=== PATIENT | male | born 1930 | race Caucasian/White ===

== ENCOUNTER 2019-06-06 15:05 | Inpatient (IN) | payer MEDICARE ==
[2019-06-06] VITALS (15 sets, daily range): BP systolic 130–153; BP diastolic 52–83
[~2019-06-06] VITALS: Ht 160 cm; Wt 80.8 kg
[~2019-06-06 15:05] MED LIST: ASPIRIN ADULT L81 M1 PO; ATACAND 32 MG PO; ATACAND4 MG PO; HYDROCODONE BIT1 T11 PO; PRILOSEC20 M1 PO; TENORMIN25 M1 PO
[2019-06-06 16:15] LABS: HEMATOCRIT 26.7 % (42.0-52.0); MEAN CORPUSCULAR HGB 25.5 pg (27.0-31.0); MEAN PLATELET VOLUME 10.5 fl (9.6-12.3); PLATELET COUNT AUTOMATED 769 10*3/uL (130-400); RED BLOOD COUNT 3.14 10*6/uL (4.50-5.90); RED CELL DISTRI WIDTH 18.6 % (0-14.5); WHITE BLOOD COUNT 10.8 10*3/uL (4.8-10.8)
[2019-06-06 16:28] LABS: ALBUMIN 3.7 gm/dl (3.1-4.5); CREATININE 1.64 mg/dL (0.70-1.30); POTASSIUM 3.7 mmol/L (3.5-5.1); TOTAL PROTEIN 6.8 gm/dL (6.4-8.2)
[2019-06-06 16:41] LABS: BASOPHILS 2 % (0-1); PLATELET SUFFICIENCY HIGH (NORMAL); TOTAL CELLS COUNTED 100 #CELLS
[2019-06-06 16:42] LABS: OVALOCYTES FEW; POLYCHROMASIA SLIGHT; STOMATOCYTE FEW
[2019-06-06] MEDS ORDERED: HYDROCHLOROTHIA25 M1 PO (18:37)
[2019-06-06] MEDS ORDERED: ATACAND4 MG PO (18:38)
[2019-06-06] MEDS ORDERED: SENOKOT8.6 MG PO (18:43)
[2019-06-06] MEDS ORDERED: FEXOFENADINE H180 M1 PO (18:46)
[2019-06-06] MEDS ORDERED: FLONASE ALLERG9.9 ML NAS (18:46)
[2019-06-06] MEDS ORDERED: SERTRALINE HYDR50 MG PO (18:47)
[2019-06-06 23:33] LABS: BASO % 0.3 % (0.0-1.0); EOS # 0.1 10*3/uL (0.0-0.4); EOS % 0.9 % (1.0-4.0); HEMATOCRIT 29.9 % (42.0-52.0); LYMPH # 2.5 10*3/uL (1.3-4.4); LYMPH % 22.2 % (27.0-41.0); MEAN CELL VOLUME 86.2 fl (80.0-94.0); MEAN CORPUSCULAR HGB 25.9 pg (27.0-31.0); MEAN CORPUSCULAR HGB CONC 30.1 g/dl (33.0-37.0); MEAN PLATELET VOLUME 10.5 fl (9.6-12.3); MONO # 0.5 10*3/uL (0.1-1.0); NEUT # 8.1 10*3/uL (2.3-7.9); NEUT % 70.7 % (47.0-73.0); PLATELET COUNT AUTOMATED 734 10*3/uL (130-400); RED BLOOD COUNT 3.47 10*6/uL (4.50-5.90); RED CELL DISTRI WIDTH 18.2 % (0-14.5); WHITE BLOOD COUNT 11.4 10*3/uL (4.8-10.8)
[2019-06-07] VITALS: BP 143/82
[2019-06-07 06:32] LABS: BASO % 0.3 % (0.0-1.0); EOS # 0.1 10*3/uL (0.0-0.4); HEMOGLOBIN 8.4 g/dl (14.0-18.0); LYMPH # 1.9 10*3/uL (1.3-4.4); LYMPH % 17.8 % (27.0-41.0); MEAN CELL VOLUME 86.7 fl (80.0-94.0); MEAN PLATELET VOLUME 10.6 fl (9.6-12.3); MONO # 0.4 10*3/uL (0.1-1.0); MONO % 3.4 % (3.0-9.0); NEUT % 75.6 % (47.0-73.0); PLATELET COUNT AUTOMATED 679 10*3/uL (130-400); RED BLOOD COUNT 3.23 10*6/uL (4.50-5.90); RED CELL DISTRI WIDTH 17.5 % (0-14.5); WHITE BLOOD COUNT 10.6 10*3/uL (4.8-10.8)
[2019-06-07 06:50] LABS: INTERNATIONAL NORM RATIO 1.1 (2.0-3.5)
[2019-06-07 07:02] LABS: ALBUMIN 3.3 gm/dl (3.1-4.5); BUN 23 mg/dl (7-24); CHLORIDE 108 mmol/L (98-107); CHOLESTEROL 107 mg/dL (<200); CREATININE 1.25 mg/dL (0.70-1.30); PHOSPHOROUS 3.6 mg/dL (2.5-4.9); POTASSIUM 3.6 mmol/L (3.5-5.1); SGOT/AST 24 IU/L (3-35); SGPT/ALT 12 U/L (12-78); SODIUM 141 mmol/L (136-145); TOTAL PROTEIN 6.2 gm/dL (6.4-8.2); TRIGLYCERIDES 157 mg/dl (<150); VLDL CHOLESTEROL 31 mg/dL (6-40)
[2019-06-07 07:09] LABS: ALKALINE PHOSPHATASE 80 U/L (45-117); HDL CHOLESTEROL 32 mg/dl (40-60); LDL CHOLESTEROL 44 mg/dL (9-159)
[2019-06-07 08:00] VITALS: BP 148/74
[2019-06-07 12:00] VITALS: BP 131/55
[2019-06-07 16:00] VITALS: BP 131/54
[2019-06-07 20:00] VITALS: BP 146/53
[2019-06-08] VITALS (8 sets, daily range): BP systolic 100–143; BP diastolic 51–66
[2019-06-08 06:58] LABS: BASO % 0.1 % (0.0-1.0); EOS % 0.1 % (1.0-4.0); HEMATOCRIT 27.6 % (42.0-52.0); HEMOGLOBIN 8.4 g/dl (14.0-18.0); LYMPH # 2.5 10*3/uL (1.3-4.4); LYMPH % 16.5 % (27.0-41.0); MEAN CELL VOLUME 85.2 fl (80.0-94.0); MEAN CORPUSCULAR HGB 25.9 pg (27.0-31.0); MEAN CORPUSCULAR HGB CONC 30.4 g/dl (33.0-37.0); MEAN PLATELET VOLUME 10.4 fl (9.6-12.3); MONO # 0.7 10*3/uL (0.1-1.0); MONO % 4.6 % (3.0-9.0); NEUT # 11.9 10*3/uL (2.3-7.9); NEUT % 77.5 % (47.0-73.0); PLATELET COUNT AUTOMATED 664 10*3/uL (130-400); RED BLOOD COUNT 3.24 10*6/uL (4.50-5.90); RED CELL DISTRI WIDTH 17.9 % (0-14.5); WHITE BLOOD COUNT 15.3 10*3/uL (4.8-10.8)
[2019-06-08 07:09] LABS: BUN 22 mg/dl (7-24); CHLORIDE 106 mmol/L (98-107); CREATININE 1.13 mg/dL (0.70-1.30); POTASSIUM 3.3 mmol/L (3.5-5.1); SODIUM 139 mmol/L (136-145)
[2019-06-08 20:44] LABS: HEMATOCRIT 30.5 % (42.0-52.0); MEAN CELL VOLUME 87.9 fl (80.0-94.0); MEAN CORPUSCULAR HGB 25.9 pg (27.0-31.0); MEAN CORPUSCULAR HGB CONC 29.5 g/dl (33.0-37.0); MEAN PLATELET VOLUME 10.7 fl (9.6-12.3); PLATELET COUNT AUTOMATED 683 10*3/uL (130-400); RED BLOOD COUNT 3.47 10*6/uL (4.50-5.90); RED CELL DISTRI WIDTH 17.9 % (0-14.5); WHITE BLOOD COUNT 21.3 10*3/uL (4.8-10.8)
[2019-06-08 20:49] LABS: BILIRUBIN NEGATIVE (NEGATIVE); BLOOD NEGATIVE (NEGATIVE); CLARITY CLEAR (CLEAR); COLOR YELLOW (YELLOW); GLUCOSE NEGATIVE (NEGATIVE); KETONE NEGATIVE (NEGATIVE); LEUKO ESTERASE NEGATIVE (NEGATIVE); NITRITE NEGATIVE (NEGATIVE); SPECIFIC GRAVITY >= 1.030 (1.005-1.030); UROBILINOGEN 0.2 E.U./dl (0.2-1.0)
[2019-06-08 20:53] LABS: INTERNATIONAL NORM RATIO 1.2 (2.0-3.5)
[2019-06-08 20:58] LABS: ALBUMIN 3.3 gm/dl (3.1-4.5); ALKALINE PHOSPHATASE 86 U/L (45-117); BUN 21 mg/dl (7-24); CHLORIDE 107 mmol/L (98-107); CPK 117 U/L (39-308); CREATININE 1.26 mg/dL (0.70-1.30); POTASSIUM 3.8 mmol/L (3.5-5.1); SGOT/AST 25 IU/L (3-35); SGPT/ALT 9 U/L (12-78); SODIUM 138 mmol/L (136-145); TOTAL PROTEIN 6.6 gm/dL (6.4-8.2)
[2019-06-08 21:02] LABS: ATYPICAL LYMPHS 2 % (0-0); TOTAL CELLS COUNTED 100 #CELLS
[2019-06-08 21:03] LABS: BURR CELLS FEW; OVALOCYTES FEW; PLATELET SUFFICIENCY HIGH (NORMAL)
[2019-06-08 21:05] LABS: BACTERIA 1+
[2019-06-08 21:05] LABS: TARGET CELLS FEW
[2019-06-09] VITALS: BP 136/51
[2019-06-09 06:35] LABS: HEMATOCRIT 25.1 % (42.0-52.0); HEMOGLOBIN 7.5 g/dl (14.0-18.0); MEAN CELL VOLUME 86.3 fl (80.0-94.0); MEAN CORPUSCULAR HGB 25.8 pg (27.0-31.0); MEAN CORPUSCULAR HGB CONC 29.9 g/dl (33.0-37.0); MEAN PLATELET VOLUME 10.8 fl (9.6-12.3); PLATELET COUNT AUTOMATED 585 10*3/uL (130-400); RED BLOOD COUNT 2.91 10*6/uL (4.50-5.90); RED CELL DISTRI WIDTH 17.9 % (0-14.5)
[2019-06-09 06:39] LABS: ALBUMIN 2.6 gm/dl (3.1-4.5); ALKALINE PHOSPHATASE 67 U/L (45-117); BUN 21 mg/dl (7-24); CHLORIDE 109 mmol/L (98-107); CREATININE 1.13 mg/dL (0.70-1.30); POTASSIUM 3.4 mmol/L (3.5-5.1); SGOT/AST 33 IU/L (3-35); SGPT/ALT 11 U/L (12-78); SODIUM 141 mmol/L (136-145); TOTAL PROTEIN 5.5 gm/dL (6.4-8.2); WHITE BLOOD COUNT 42.2 10*3/uL (4.8-10.8)
[2019-06-09 07:27] LABS: TOTAL CELLS COUNTED 100 #CELLS
[2019-06-09 07:28] LABS: OVALOCYTES FEW; PLATELET SUFFICIENCY HIGH (NORMAL); POLYCHROMASIA SLIGHT; STOMATOCYTE FEW
[2019-06-09 07:29] LABS: SCHISTOCYTES FEW; TARGET CELLS FEW
[2019-06-09 12:00] VITALS: BP 116/51
[2019-06-09 12:05] LABS: HEMATOCRIT 24.6 % (42.0-52.0); HEMOGLOBIN 7.4 g/dl (14.0-18.0); MEAN CORPUSCULAR HGB 25.9 pg (27.0-31.0); MEAN CORPUSCULAR HGB CONC 30.1 g/dl (33.0-37.0); MEAN PLATELET VOLUME 10.5 fl (9.6-12.3); PLATELET COUNT AUTOMATED 608 10*3/uL (130-400); RED BLOOD COUNT 2.86 10*6/uL (4.50-5.90); RED CELL DISTRI WIDTH 17.8 % (0-14.5)
[2019-06-09 12:09] LABS: WHITE BLOOD COUNT 45.5 10*3/uL (4.8-10.8)
[2019-06-09 12:45] LABS: OVALOCYTES FEW; PLATELET SUFFICIENCY HIGH (NORMAL); POLYCHROMASIA SLIGHT; TOTAL CELLS COUNTED 100 #CELLS
[2019-06-09 12:46] LABS: STOMATOCYTE FEW
[2019-06-09 16:00] VITALS: BP 129/54
[2019-06-09 20:00] VITALS: BP 134/67
[2019-06-10] VITALS (14 sets, daily range): BP systolic 108–143; BP diastolic 47–82
[2019-06-10 07:05] LABS: HEMATOCRIT 23.2 % (42.0-52.0); MEAN CELL VOLUME 85.3 fl (80.0-94.0); MEAN CORPUSCULAR HGB 25.7 pg (27.0-31.0); MEAN CORPUSCULAR HGB CONC 30.2 g/dl (33.0-37.0); MEAN PLATELET VOLUME 10.9 fl (9.6-12.3); NUCLEATED RED BLOOD CELL 0.1 % (0.0-0.0); PLATELET COUNT AUTOMATED 641 10*3/uL (130-400); RED BLOOD COUNT 2.72 10*6/uL (4.50-5.90); WHITE BLOOD COUNT 31.6 10*3/uL (4.8-10.8)
[2019-06-10 07:23] LABS: BUN 24 mg/dl (7-24); CHLORIDE 111 mmol/L (98-107); POTASSIUM 3.3 mmol/L (3.5-5.1); SODIUM 140 mmol/L (136-145)
[2019-06-10 07:33] LABS: TOTAL CELLS COUNTED 100 #CELLS
[2019-06-10 07:34] LABS: ACANTHOCYTES FEW; OVALOCYTES FEW; PLATELET SUFFICIENCY HIGH (NORMAL); POLYCHROMASIA SLIGHT
[2019-06-10 15:34] LABS: HEMATOCRIT 30.2 % (42.0-52.0); HEMOGLOBIN 9.4 g/dl (14.0-18.0); MEAN CELL VOLUME 84.8 fl (80.0-94.0); MEAN CORPUSCULAR HGB 26.4 pg (27.0-31.0); MEAN CORPUSCULAR HGB CONC 31.1 g/dl (33.0-37.0); MEAN PLATELET VOLUME 10.8 fl (9.6-12.3); PLATELET COUNT AUTOMATED 740 10*3/uL (130-400); RED BLOOD COUNT 3.56 10*6/uL (4.50-5.90); RED CELL DISTRI WIDTH 18.1 % (0-14.5); WHITE BLOOD COUNT 36.5 10*3/uL (4.8-10.8)
[2019-06-10 15:59] LABS: TOTAL CELLS COUNTED 100 #CELLS
[2019-06-10 16:01] LABS: PLATELET SUFFICIENCY HIGH (NORMAL); POLYCHROMASIA SLIGHT
[2019-06-10 16:02] LABS: OVALOCYTES FEW
[2019-06-11 06:02] LABS: ALBUMIN 2.5 gm/dl (3.1-4.5); ALKALINE PHOSPHATASE 72 U/L (45-117); BUN 24 mg/dl (7-24); CHLORIDE 110 mmol/L (98-107); CREATININE 1.12 mg/dL (0.70-1.30); POTASSIUM 3.3 mmol/L (3.5-5.1); SGOT/AST 53 IU/L (3-35); SGPT/ALT 14 U/L (12-78); SODIUM 141 mmol/L (136-145); TOTAL PROTEIN 5.8 gm/dL (6.4-8.2); VANCOMYCIN TROUGH 9.3 ug/mL (10-20)
[2019-06-11 06:10] LABS: HEMOGLOBIN 8.8 g/dl (14.0-18.0); MEAN CELL VOLUME 84.8 fl (80.0-94.0); MEAN CORPUSCULAR HGB 25.7 pg (27.0-31.0); MEAN CORPUSCULAR HGB CONC 30.3 g/dl (33.0-37.0); MEAN PLATELET VOLUME 11.2 fl (9.6-12.3); PLATELET COUNT AUTOMATED 780 10*3/uL (130-400); RED BLOOD COUNT 3.42 10*6/uL (4.50-5.90); RED CELL DISTRI WIDTH 18.5 % (0-14.5); WHITE BLOOD COUNT 31.7 10*3/uL (4.8-10.8)
[2019-06-11 07:08] LABS: ATYPICAL LYMPHS 2 % (0-0); TOTAL CELLS COUNTED 100 #CELLS
[2019-06-11 07:09] LABS: ACANTHOCYTES FEW; OVALOCYTES FEW; PLATELET SUFFICIENCY HIGH (NORMAL); POLYCHROMASIA SLIGHT
[2019-06-11 07:40] VITALS: BP 140/64
[2019-06-11 11:50] VITALS: BP 110/82
[2019-06-11 16:00] VITALS: BP 115/56
[2019-06-11 20:00] VITALS: BP 122/54
[2019-06-12] VITALS: BP 126/63
[2019-06-12 06:48] LABS: HEMATOCRIT 28.1 % (42.0-52.0); HEMOGLOBIN 8.5 g/dl (14.0-18.0); MEAN CELL VOLUME 85.4 fl (80.0-94.0); MEAN CORPUSCULAR HGB 25.8 pg (27.0-31.0); MEAN CORPUSCULAR HGB CONC 30.2 g/dl (33.0-37.0); MEAN PLATELET VOLUME 11.1 fl (9.6-12.3); PLATELET COUNT AUTOMATED 772 10*3/uL (130-400); RED BLOOD COUNT 3.29 10*6/uL (4.50-5.90); RED CELL DISTRI WIDTH 18.5 % (0-14.5); WHITE BLOOD COUNT 21.5 10*3/uL (4.8-10.8)
[2019-06-12 07:17] LABS: BUN 19 mg/dl (7-24); CHLORIDE 112 mmol/L (98-107); CREATININE 1.07 mg/dL (0.70-1.30); POTASSIUM 3.2 mmol/L (3.5-5.1); SODIUM 142 mmol/L (136-145)
[2019-06-12 07:47] LABS: ACANTHOCYTES FEW; OVALOCYTES FEW; PLATELET SUFFICIENCY NORMAL (NORMAL); POLYCHROMASIA SLIGHT; SCHISTOCYTES FEW; TARGET CELLS FEW
[2019-06-12 07:48] LABS: BASOPHILS 1 % (0-1); TOTAL CELLS COUNTED 100 #CELLS
[2019-06-12 08:00] VITALS: BP 138/78
[2019-06-12 12:00] VITALS: BP 110/50
[2019-06-12 16:00] VITALS: BP 121/58
[2019-06-12 20:00] VITALS: BP 101/38
[2019-06-12 21:00] VITALS: BP 118/62
[2019-06-13] VITALS: BP 107/37
[2019-06-13 07:26] LABS: HEMATOCRIT 27.6 % (42.0-52.0); HEMOGLOBIN 8.4 g/dl (14.0-18.0); MEAN CELL VOLUME 83.9 fl (80.0-94.0); MEAN CORPUSCULAR HGB 25.5 pg (27.0-31.0); MEAN CORPUSCULAR HGB CONC 30.4 g/dl (33.0-37.0); MEAN PLATELET VOLUME 10.9 fl (9.6-12.3); NUCLEATED RED BLOOD CELL 0.1 % (0.0-0.0); PLATELET COUNT AUTOMATED 889 10*3/uL (130-400); RED BLOOD COUNT 3.29 10*6/uL (4.50-5.90); RED CELL DISTRI WIDTH 18.3 % (0-14.5); WHITE BLOOD COUNT 21.3 10*3/uL (4.8-10.8)
[2019-06-13 08:00] VITALS: BP 144/61
[2019-06-13 08:06] LABS: TOTAL CELLS COUNTED 100 #CELLS
[2019-06-13 08:09] LABS: BLASTS 1 % (0-0); OVALOCYTES FEW; PLATELET SUFFICIENCY HIGH (NORMAL); SCHISTOCYTES FEW
[2019-06-13 12:00] VITALS: BP 146/66
[2019-06-13 16:00] VITALS: BP 152/69
[2019-06-13 20:00] VITALS: BP 116/52
[2019-06-13 22:00] VITALS: BP 116/52
[2019-06-14] VITALS: BP 134/50
[2019-06-14 07:20] LABS: ALBUMIN 2.3 gm/dl (3.1-4.5); BUN 14 mg/dl (7-24); CHLORIDE 110 mmol/L (98-107); CREATININE 1.12 mg/dL (0.70-1.30); POTASSIUM 3.1 mmol/L (3.5-5.1); SGOT/AST 31 IU/L (3-35); SGPT/ALT 14 U/L (12-78); SODIUM 144 mmol/L (136-145)
[2019-06-14 07:21] LABS: ALKALINE PHOSPHATASE 69 U/L (45-117); TOTAL PROTEIN 5.3 gm/dL (6.4-8.2)
[2019-06-14 08:00] VITALS: BP 138/60
[2019-06-14 12:00] VITALS: BP 128/60
[2019-06-14 12:12] LABS: HEMATOCRIT 30.3 % (42.0-52.0); HEMOGLOBIN 9.2 g/dl (14.0-18.0); MEAN CELL VOLUME 85.1 fl (80.0-94.0); MEAN CORPUSCULAR HGB 25.8 pg (27.0-31.0); MEAN CORPUSCULAR HGB CONC 30.4 g/dl (33.0-37.0); MEAN PLATELET VOLUME 10.8 fl (9.6-12.3); NUCLEATED RED BLOOD CELL 0.2 % (0.0-0.0); RED BLOOD COUNT 3.56 10*6/uL (4.50-5.90); RED CELL DISTRI WIDTH 18.2 % (0-14.5); WHITE BLOOD COUNT 26.3 10*3/uL (4.8-10.8)
[2019-06-14 12:17] LABS: PLATELET COUNT AUTOMATED 1171 10*3/uL (130-400)
[2019-06-14 12:34] LABS: BLASTS 6 % (0-0); TOTAL CELLS COUNTED 100 #CELLS
[2019-06-14 12:35] LABS: OVALOCYTES MODERATE; PLATELET SUFFICIENCY HIGH (NORMAL); POLYCHROMASIA SLIGHT; SCHISTOCYTES FEW
[2019-06-14 13:28] LABS: IRON 56 ug/dL (65-175); TOTAL IRON BINDING CAPACITY 201 ug/dl (250-450)
[2019-06-14 16:00] VITALS: BP 129/55
[2019-06-14 20:00] VITALS: BP 127/54
[2019-06-15] VITALS: BP 124/51
[2019-06-15 06:20] LABS: HEMATOCRIT 27.3 % (42.0-52.0); HEMOGLOBIN 8.3 g/dl (14.0-18.0); MEAN CORPUSCULAR HGB 25.5 pg (27.0-31.0); MEAN CORPUSCULAR HGB CONC 30.4 g/dl (33.0-37.0); MEAN PLATELET VOLUME 10.8 fl (9.6-12.3); NUCLEATED RED BLOOD CELL 0.2 % (0.0-0.0); PLATELET COUNT AUTOMATED 866 10*3/uL (130-400); RED BLOOD COUNT 3.25 10*6/uL (4.50-5.90); RED CELL DISTRI WIDTH 17.7 % (0-14.5); WHITE BLOOD COUNT 18.9 10*3/uL (4.8-10.8)
[2019-06-15 06:35] LABS: ALBUMIN 2.3 gm/dl (3.1-4.5); ALKALINE PHOSPHATASE 75 U/L (45-117); BUN 15 mg/dl (7-24); CHLORIDE 109 mmol/L (98-107); CREATININE 1.06 mg/dL (0.70-1.30); SGOT/AST 25 IU/L (3-35); SGPT/ALT 10 U/L (12-78); SODIUM 143 mmol/L (136-145); TOTAL PROTEIN 5.5 gm/dL (6.4-8.2)
[2019-06-15 06:50] LABS: ATYPICAL LYMPHS 1 % (0-0); BASOPHILS 1 % (0-1); BLASTS 2 % (0-0); POLYCHROMASIA SLIGHT; TOTAL CELLS COUNTED 100 #CELLS
[2019-06-15 06:51] LABS: OVALOCYTES FEW; PLATELET SUFFICIENCY HIGH (NORMAL)
[2019-06-15 08:00] VITALS: BP 130/60
[2019-06-15] MEDS ORDERED: LEVAQUIN750 M1 PO ×2 (10:03→13:43)
[2019-06-15 12:00] VITALS: BP 106/60
== END 2019-06-15 14:03 | disposition home or self-care (01) | DRG 871 ==
LOC: ED 15:05 → 4E 18:17 → EDHOLD 18:17 → 4E 18:24
PROVIDERS: Emergency Medicine; Internal Medicine; Internal Medicine Critical Care Medicine; Internal Medicine Gastroenterology; Student in an Organized Health Care Education/Training Program; ADMIT Internal Medicine
DX: A41.9 Sepsis, unspecified organism (principal); N17.0 Acute kidney failure with tubular necrosis; K29.71 Gastritis, unspecified, with bleeding; J18.9 Pneumonia, unspecified organism; K57.31 Diverticulosis of large intestine without perforation or abscess with bleeding; F33.9 Major depressive disorder, recurrent, unspecified; S26.90XA Unspecified injury of heart, unspecified with or without hemopericardium, initial encounter; I24.8 Other forms of acute ischemic heart disease; D62 Acute posthemorrhagic anemia; K44.9 Diaphragmatic hernia without obstruction or gangrene; R65.20 Severe sepsis without septic shock; D47.3 Essential (hemorrhagic) thrombocythemia; R73.9 Hyperglycemia, unspecified; I10 Essential (primary) hypertension; K21.9 Gastro-esophageal reflux disease without esophagitis; E87.6 Hypokalemia; E66.9 Obesity, unspecified; Z88.6 Allergy status to analgesic agent; Z88.8 Allergy status to other drugs, medicaments and biological substances; Z90.49 Acquired absence of other specified parts of digestive tract; Z87.891 Personal history of nicotine dependence; Z82.49 Family history of ischemic heart disease and other diseases of the circulatory system; Z82.3 Family history of stroke; Z79.82 Long term (current) use of aspirin; Z79.899 Other long term (current) drug therapy; Z68.31 Body mass index [BMI] 31.0-31.9, adult